=== PATIENT | female | born 1960 | race Hispanic/Latino ===

== ENCOUNTER 2018-09-16 14:20 | Outpatient (CLI) | payer MEDICARE ==
--- NOTE | 2018-09-16 15:33 | RAD ---
TWO VIEW CHEST: INDICATION: Interstitial lung disease. COMPARISON: No prior comparison. FINDINGS: Interstitial and alveolar opacities present bilaterally. There is enlargement of the cardiac silhoue tte and pulmonary vasculature. Elevation of the right hemidiaphragm is seen. IMPRESSION: 1. Bilateral interstitial and alveolar opacities may be on the basis of edema, atypical pneumonia, a nd/or interstitial lung disease. Recommend continued imaging followup. 2. Enlarged cardiac silhouette and pulmonary vasculature. Correlate for evidence of congestive hear t failure/fluid overload. POS: [facility]
== END 2018-09-16 14:21 | disposition home or self-care (01) ==
LOC: RAD 14:20
PROVIDERS: ATTEND Thoracic Surgery (Cardiothoracic Vascular Surgery)
DX: J84.9 Interstitial pulmonary disease, unspecified (principal); R91.8 Other nonspecific abnormal finding of lung field; I51.7 Cardiomegaly
CPT/HCPCS: 71046